=== PATIENT | female | born 1985 | race Caucasian/White ===

== ENCOUNTER 2017-03-01 11:14 | Emergency (ER) | payer OTHER ==
[~2017-03-01] VITALS: Ht 175.3 cm; Wt 127.0 kg
[2017-03-01] MEDS ORDERED: BAYER BACK & B1 EACH PO (11:29)
[2017-03-01] MEDS ORDERED: ZITHROMAX250 MG PO (11:42)
== END 2017-03-01 11:53 | disposition home or self-care (01) ==
LOC: ED 11:14
DX: H66.92 Otitis media, unspecified, left ear (principal); D64.9 Anemia, unspecified; F17.200 Nicotine dependence, unspecified, uncomplicated
CPT/HCPCS: 99283